=== PATIENT | female | born 1935 | race Two or more races ===

== ENCOUNTER 2023-03-21 03:14 | Emergency (ER) | payer OTHER ==
[~2023-03-21] VITALS: Ht 162.6 cm; Wt 75.0 kg
[2023-03-21 03:14] VITALS: PULSE 0
== END 2023-03-21 03:24 ==
LOC: ER 03:14 → EDBD 03:18 → ER 03:24
DX: I46.9 Cardiac arrest, cause unspecified (principal); I10 Essential (primary) hypertension; J44.9 Chronic obstructive pulmonary disease, unspecified
CPT/HCPCS: 31500; 92950